=== PATIENT | female | born 1965 | race Caucasian/White ===

== ENCOUNTER 2017-07-09 11:07 | Emergency (ER) | payer OTHER ==
--- NOTE | 2017-07-09 12:46 | RAD REPORT ---
EXAM DESCRIPTION: VAS - Extremity Venous Uni Ltd - 07/09/2017 12:27 pm CLINICAL HISTORY: Right leg pain, right calf pain COMPARISON: None. TECHNIQUE: Real-time sonographic evaluation of the right lower extremity deep venous systems was per formed. FINDINGS: Normal compressibility, flow augmentation, phasic flow and spontaneous flow are identified in the right lower extremity deep venous system. No intraluminal filling defects seen. Minimal hypoechoic area seen in the area of pain. This could be a small amount of hemorrhagic materia l. No abscess or drainable fluid collection. IMPRESSION: No DVT in the right lower extremity. Minimal edema or hemorrhage material in the superficial soft tissues at the area of calf pain.
--- NOTE | 2017-07-09 15:24 | ER ---
Nurse's Notes [facility] Name: Natalee Marquez Age: 52 yrs Sex: Female : 1965 Arrival Date: 07/09/2017 Time: 11:14 Bed 14 Private MD: Diagnosis: Edema, unspecified;Pain in right lower leg;Cellulitis of right lower limb Presentation: 07/09 11:14 Presenting complaint: Patient states: last Thursday went to [place], because of swelling on hj my R leg, last night i felt a knot on my R lower leg; its swollen and red;. Transition of care: patient was not received from another setting of care. Onset of symptoms was July 09, 2017. Care prior to arrival: None. 11:14 Method Of Arrival: Ambulatory 11:14 Acuity: JANICE 3 hj Triage Assessment: 11:17 General: Appears in no apparent distress. uncomfortable, Behavior is calm, cooperative, hj appropriate for age. Pain: Complains of pain in right leg. ADMIN ASST: 11:18 LMP N/A - Hysterectomy hj Historical: - Allergies: 11:17 No Known Allergies; hj - Home Meds: 11:17 [place] Thyroid 90 mg Oral tab daily [Active]; lisinopril 20 mg Oral tab 1 tab once hj daily [Active]; fenofibrate 50 mg oral cap 1 cap once daily [Active]; trazodone 50 mg Oral tab 1 tab 3 times per day [Active]; - PMHx: 11:17 Hypothyroidism; Hypertension; hj - PSHx: 11:17 Tonsillectomy; Hysterectomy; Cholecystectomy; hj - Immunization history:: Adult Immunizations up to date. - Family history:: not pertinent. - Social history:: Smoking status: unknown. Screenin:34 Abuse screen: Denies threats or abuse. Denies injuries from another. Nutritional aj1 screening: No deficits noted. Tuberculosis screening: No symptoms or risk factors identified. 15:56 Fall Risk None identified. aj1 Assessment: 13:34 General: Appears in no apparent distress. comfortable, Behavior is calm, cooperative, aj1 appropriate for age. Pain: Complains of pain in right calf Neuro: Level of Consciousness is awake, alert, obeys commands, Oriented to person, place, time, situation, Speech is normal, Facial symmetry appears normal. Cardiovascular: Patient's skin is warm and dry. Respiratory: Airway is patent Respiratory effort is even, unlabored, Respiratory pattern is regular, symmetrical. GI: No signs and/or symptoms were reported involving the gastrointestinal system. : No signs and/or symptoms were reported regarding the genitourinary system. EENT: No signs and/or symptoms were reported regarding the EENT system. Derm: Skin is pink, warm \T\ dry. normal. Musculoskeletal: Swelling present in right ankle, right calf and right sauceda Redness present in right calf. 14:30 Reassessment: Patient appears in no apparent distress at this time. No changes from aj1 previously documented assessment. Patient and/or family updated on plan of care and expected duration. Pain level reassessed. Patient is alert, oriented x 3, equal unlabored respirations, skin warm/dry/pink. 15:56 Reassessment: Patient appears in no apparent distress at this time. No changes from aj1 previously documented assessment. Patient and/or family updated on plan of care and expected duration. Pain level reassessed. Patient is alert, oriented x 3, equal unlabored respirations, skin warm/dry/pink. Vital Signs: 11:18 BP 141 / 103; Pulse 77; Resp 18; Temp 97.3(TE); Pulse Ox 100% on R/A; Weight 72.57 kg; hj Height 5 ft. 5 in. (165.10 cm); Pain 6/10; 13:34 BP 120 / 77; Pulse 71; Resp 18; Pulse Ox 100% on R/A; aj1 15:56 BP 130 / 86; Pulse 73; Resp 18; Pulse Ox 97% on R/A; aj1 11:18 Body Mass Index 26.62 (72.57 kg, 165.10 cm) ED Course: 11:14 Patient arrived in ED. hj 11:16 Triage completed. hj 11:18 Arm band placed on left wrist. hj 12:15 Patient taken to ultrasound. via wheelchair. aa4 12:31 Ultrasound completed. Patient tolerated well. Patient moved back from ultrasound. aa4 13:25 Guerline Davey, RN is Primary Nurse. aj1 13:29 Nik Graham MD is Attending Physician. gilberto 13:34 Patient has correct armband on for positive identification. Placed in gown. Bed in low aj1 position. Call light in reach. Side rails up X 1. 13:34 No provider procedures requiring assistance completed. aj1 15:31 X-ray completed. Portable x-ray completed in exam room. Patient tolerated procedure bb2 well. 15:56 Patient did not have IV access during this emergency room visit. aj1 Administered Medications: 15:49 Drug: Motrin 400 mg Route: PO; aj1 15:58 Follow up: Response: No adverse reaction aj1 15:49 Drug: Doxycycline 100 mg Route: PO; aj1 15:58 Follow up: Response: No adverse reaction aj1 15:49 Drug: [place] 5 mg-325 mg 1 tabs Route: PO; aj1 15:57 Follow up: Response: No adverse reaction aj1 Outcome: 15:24 Discharge ordered by . gilberto 15:56 Discharged to home ambulatory. aj1 15:56 Condition: good 15:56 Discharge instructions given to patient, Instructed on discharge instructions, follow up and referral plans. no drinking with medication, no driving heavy equipment, medication usage, Demonstrated understanding of instructions, follow-up care, medications, Prescriptions given X 3. 15:59 Patient left the ED. aj1 Signatures: Guerline Davey, RN RN aj1 Nik Graham MD MD cha Frazier, Amanda aa4 Diego Robin RN RN hj Bock, Brittany bb2 Corrections: (The following items were deleted from the chart) 11:19 11:18 Pulse 77bpm; Resp 18bpm; Pulse Ox 100% RA; Temp 97.3F Temporal; 72.57 kg; Height hj 5 ft. 5 in.; BMI: 26.6; Pain 6/10; hj 11:20 11:18 Pulse 77bpm; Resp 18bpm; Pulse Ox 100% RA; Temp 97.3F Temporal; 72.57 kg; Height hj 5 ft. 5 in.; BMI: 26.6; Pain 6/10; hj
--- NOTE | 2017-07-09 15:24 | EDPHYS ---
Physician Documentation [facility] Name: Natalee Marquez Age: 52 yrs Sex: Female : 1965 Arrival Date: 07/09/2017 Time: 11:14 Bed 14 Private MD: ED Nik Barron HPI: 07/09 15:19 This 52 yrs old Female presents to ER via Ambulatory with complaints of Leg gilberto Swelling. 15:19 The patient presents with decreased range of motion, pain. The complaints affect the gilberto right sauceda. Context: The problem was sustained at an unknown site. Onset: The symptoms/episode began/occurred 14 day(s) ago. Modifying factors: The symptoms are alleviated by elevating leg, remaining still, the symptoms are aggravated by weight bearing. Associated signs and symptoms: The patient has no apparent associated signs or symptoms. Treatment prior to arrival includes: no previous treatment. Severity of symptoms: At their worst the symptoms were mild. 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 - Family history:: not pertinent. - Social history:: Smoking status: unknown. ROS: 15:19 Constitutional: Negative for fever, chills, and weight loss, Eyes: Negative for injury, gilberto pain, redness, and discharge, ENT: Negative for injury, pain, and discharge, Neck: Negative for injury, pain, and swelling, Cardiovascular: Negative for chest pain, palpitations, and edema, Respiratory: Negative for shortness of breath, cough, wheezing, and pleuritic chest pain, Abdomen/GI: Negative for abdominal pain, nausea, vomiting, diarrhea, and constipation, Back: Negative for injury and pain, : Negative for injury, bleeding, discharge, and swelling, Neuro: Negative for headache, weakness, numbness, tingling, and seizure, Psych: Negative for depression, anxiety, suicide ideation, homicidal ideation, and hallucinations, Allergy/Immunology: Negative for hives, rash, and allergies, Endocrine: Negative for neck swelling, polydipsia, polyuria, polyphagia, and marked weight changes, Hematologic/Lymphatic: Negative for swollen nodes, abnormal bleeding, and unusual bruising. 15:19 MS/extremity: Positive for decreased range of motion, erythema, pain, tenderness, of the right sauceda. Exam: 15:19 Constitutional: This is a well developed, well nourished patient who is awake, alert, gilberto and in no acute distress. Head/Face: Normocephalic, atraumatic. Eyes: Pupils equal round and reactive to light, extra-ocular motions intact. Lids and lashes normal. Conjunctiva and sclera are non-icteric and not injected. Cornea within normal limits. Periorbital areas with no swelling, redness, or edema. ENT: Nares patent. No nasal discharge, no septal abnormalities noted. Tympanic membranes are normal and external auditory canals are clear. Oropharynx with no redness, swelling, or masses, exudates, or evidence of obstruction, uvula midline. Mucous membranes moist. Neck: Trachea midline, no thyromegaly or masses palpated, and no cervical lymphadenopathy. Supple, full range of motion without nuchal rigidity, or vertebral point tenderness. No Meningismus. Chest/axilla: Normal chest wall appearance and motion. Nontender with no deformity. No lesions are appreciated. Cardiovascular: Regular rate and rhythm with a normal S1 and S2. No gallops, murmurs, or rubs. Normal PMI, no JVD. No pulse deficits. Respiratory: Lungs have equal breath sounds bilaterally, clear to auscultation and percussion. No rales, rhonchi or wheezes noted. No increased work of breathing, no retractions or nasal flaring. Abdomen/GI: Soft, non-tender, with normal bowel sounds. No distension or tympany. No guarding or rebound. No evidence of tenderness throughout. Back: No spinal tenderness. No costovertebral tenderness. Full range of motion. Skin: Warm, dry with normal turgor. Normal color with no rashes, no lesions, and no evidence of cellulitis. MS/ Extremity: Pulses equal, no cyanosis. Neurovascular intact. Full, normal range of motion. Neuro: Awake and alert, GCS 15, oriented to person, place, time, and situation. Cranial nerves II-XII grossly intact. Motor strength 5/5 in all extremities. Sensory grossly intact. Cerebellar exam normal. Normal gait. Psych: Awake, alert, with orientation to person, place and time. Behavior, mood, and affect are within normal limits. 15:19 Musculoskeletal/extremity: ROM: no acute changes, intact in all extremities, full active range of motion, full passive range of motion, Circulation is intact in all extremities. Sensation intact. Compartment Syndrome exam of affected extremity: is normal. DVT Exam: negative Homans' sign noted on exam, no appreciated bluish discoloration, no erythema, no increased warmth, pain, swelling, tenderness. Vital Signs: 11:18 BP 141 / 103; Pulse 77; Resp 18; Temp 97.3(TE); Pulse Ox 100% on R/A; Weight 72.57 kg; hj Height 5 ft. 5 in. (165.10 cm); Pain 6/10; 13:34 BP 120 / 77; Pulse 71; Resp 18; Pulse Ox 100% on R/A; aj1 15:56 BP 130 / 86; Pulse 73; Resp 18; Pulse Ox 97% on R/A; aj1 11:18 Body Mass Index 26.62 (72.57 kg, 165.10 cm) hj MDM: 13:29 Patient medically screened. [facility] 07/09 11:46 Order name: US Extremity Venous Uni Ltd iw 07/09 12:46 Order name: VAS EDNC 07/09 15:19 Order name: Tib Fib Right XRAY [facility] Administered Medications: 15:49 Drug: Motrin 400 mg Route: PO; aj1 15:58 Follow up: Response: No adverse reaction aj1 15:49 Drug: Doxycycline 100 mg Route: PO; aj1 15:58 Follow up: Response: No adverse reaction aj1 15:49 Drug: [place] 5 mg-325 mg 1 tabs Route: PO; aj1 15:57 Follow up: Response: No adverse reaction aj1 Disposition: 07/09/17 15:24 Discharged to Home. Impression: Edema, unspecified, Pain in right lower leg, Cellulitis of right lower limb. - Condition is Stable. - Discharge Instructions: Cellulitis, Edema, Musculoskeletal Pain. - Prescriptions for Tylenol- Codeine #3 300-30 mg Oral Tablet - take 1 tablet by ORAL route every 4 hours As needed; 24 tablet. Doxycycline Hyclate 100 mg Oral Tablet - take 1 tablet by ORAL route every 12 hours; 20 tablet. Motrin IB 200 mg Oral Tablet - take 1 tablet by ORAL route every 6 hours As needed as needed with food; 30 tablet. - Medication Reconciliation Form, Thank You Letter, Antibiotic Education, Prescription Opioid Use form. - Follow up: Private Physician; When: 2 - 3 days; Reason: Recheck today's complaints, Continuance of care, Re-evaluation by your physician. - Problem is new. - Symptoms have improved. Signatures: Dispatcher [employer] EDGuerline Parr RN RN aj1 Nik Graham MD MD cha Joaquin, Henry, RN RN hj
[2017-07-09] MEDS ORDERED: HYDROCODONE/APAP 10/325 TAB ONE (15:26)
[2017-07-09] MEDS ORDERED: DOXYCYCLINE 100 MG CAP PO ONE (16:01)
[2017-07-09] MEDS ORDERED: IBUPROFEN 400 MG TAB ONE (16:01)
[2017-07-09] MEDS ORDERED: HYDROCODONE/APAP 5/325 MG TAB ONE (16:01)
--- NOTE | 2017-07-09 16:23 | RAD REPORT ---
EXAM DESCRIPTION: RAD - Tib Fib Right - 07/09/2017 3:31 pm CLINICAL HISTORY: Leg pain and swelling COMPARISON: None. FINDINGS: No fracture is identified. There is no dislocation or periosteal reaction noted. No acute or suspicious bony finding. No foreign body or other soft tissue abnormality. IMPRESSION: Negative right tibia & fibula examination.
== END 2017-07-09 15:59 | disposition home or self-care (01) ==
LOC: ER 11:07
DX: E03.9 Hypothyroidism, unspecified; L03.115 Cellulitis of right lower limb; I10 Essential (primary) hypertension
CPT/HCPCS: 93971; 99284

== ENCOUNTER 2018-06-02 16:59 | Emergency (ER) | payer OTHER ==
--- OUTSIDE RECORDS SUMMARY | 2018-06-02 17:01 | XMS REPORT ---
:1965 [facility] [address] [place] [id number] Care Team Providers Name Role Phone Unavailable Unavailable Unavailable Problems This patient has no known problems. Allergies, Adverse Reactions, Alerts This patient has no known allergies or adverse reactions. Medications This patient has no known medications.
[2018-06-02 17:54] LABS: Absolute Lymphocytes (CBC) 2.8 K/uL (0.7-4.9); Absolute Monocytes 0.7 K/uL (0.1-1.3); Basophils % 0.5 % (0-1.3); Eosinophils % 1.4 % (0-4.4); Hematocrit 43.3 % (36.0-45.0); Lymphocytes % 26.1 % (15.3-44.8); MPV 9.2 fL (7.6-11.3); Monocytes % 6.9 % (3.3-12.3); RBC Red Blood Cell Count 4.64 M/uL (3.86-4.86)
[2018-06-02 17:58] LABS: Protime INR 0.95
--- NOTE | 2018-06-02 17:59 | RAD REPORT ---
EXAM DESCRIPTION: RAD - Chest Single View - 06/02/2018 5:38 pm CLINICAL HISTORY: CHEST PAIN Chest pain. COMPARISON: No comparisons FINDINGS: Portable technique limits examination quality. The lungs are grossly clear. The heart is normal in size. No displaced fractures. IMPRESSION: No acute intrathoracic process suspected.
[2018-06-02 18:17] LABS: ALT/SGPT 23 U/L (12-78); AST/SGOT 14 U/L (15-37); Albumin 3.7 g/dL (3.4-5.0); Alkaline Phosphatase 53 U/L (45-117); BUN Blood Urea Nitrogen 14 mg/dL (7-18); Bicarbonate 32 mmol/L (21-32); Bilirubin Direct 0.1 mg/dL (0-0.2); Bilirubin Total 0.4 mg/dL (0.2-1.0); Glucose Level 110 mg/dL (74-106); NT PRO-BNP 28 pg/mL (<125); Protein, Total 7.5 g/dL (6.4-8.2); Sodium Level 139 mmol/L (136-145); Troponin (Emerg Dept Use Only) < 0.02 ng/mL (0.0-0.045)
[2018-06-02 19:46] LABS: Urine Blood NEGATIVE (NEG); Urine Glucose NEGATIVE (NEG); Urine Protein NEGATIVE (NEG)
--- NOTE | 2018-06-02 20:32 | EKG ---
Test Date: 2018-06-02 Test Time: 17:21:10 [employer]re Charger: [place] MEASUREMENT RESULTS: Intervals: Rate: 71 ME: 150 QRSD: 74 QT: 382 QTc: 415 [place]: P: 33 ME: 150 QRS: 18 T: 39 INTERPRETIVE STATEMENTS: Normal sinus rhythm Normal ECG Compared to ECG 10/01/2012 09:52:17 No significant changes Electronically Signed On 06-02-18 20:31:26 MECHANICAL INTERN by Reuben Del Rio
[2018-06-02] MEDS ORDERED: MAGNE/ALUM HYDROXD 30 ML UCUP ONE (21:30)
[2018-06-02] MEDS ORDERED: LIDOCAINE VISCOUS 2% SOLN 15 ML UDC ONE (21:30)
--- NOTE | 2018-06-02 21:31 | ER ---
Nurse's Notes [facility] Name: Natalee Marquez Age: 52 yrs Sex: Female : 1965 Arrival Date: 06/02/2018 Time: 17:01 Bed 17 Private MD: None, None Diagnosis: Chest pain, unspecified Presentation: 06/02 17:04 Presenting complaint: Burning chest pain that started after breakfast today. Also c/o hb nausea and mild SOB. Transition of care: patient was not received from another setting of care. Onset of symptoms was June 02, 2018. Risk Assessment: Do you want to hurt yourself or someone else? Patient reports no desire to harm self or others. Care prior to arrival: None. 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 - Social history:: Smoking status: Patient/guardian denies using tobacco. - Ebola Screening: : No symptoms or risks identified at this time. Screenin:30 Abuse screen: Denies threats or abuse. Denies injuries from another. Nutritional aj1 screening: No deficits noted. Tuberculosis screening: No symptoms or risk factors identified. Assessment: 17:30 General: Appears in no apparent distress. comfortable, Behavior is calm, cooperative, aj1 appropriate for age. Pain: Complains of pain in mid-sternal area Pain radiates to anterior aspect of right upper chest and anterior aspect of left upper chest Quality of pain is described as burning, Pain began this morning. Neuro: Level of Consciousness is awake, alert, obeys commands, Oriented to person, place, time, situation, Speech is normal. Cardiovascular: Reports chest pain, shortness of breath, Heart tones S1 S2 present Patient's skin is warm and dry. Rhythm is sinus rhythm. Respiratory: Airway is patent Respiratory effort is even, unlabored, Respiratory pattern is regular, symmetrical, Breath sounds are clear bilaterally. GI: No signs and/or symptoms were reported involving the gastrointestinal system. : No signs and/or symptoms were reported regarding the genitourinary system. EENT: No signs and/or symptoms were reported regarding the EENT system. Derm: No signs and/or symptoms reported regarding the dermatologic system. Skin is pink, warm \T\ dry. normal. Musculoskeletal: No signs and/or symptoms reported regarding the musculoskeletal system. Circulation, motion, and sensation intact. 18:29 Reassessment: Patient appears in no apparent distress at this time. No changes from aj1 previously documented assessment. Patient and/or family updated on plan of care and expected duration. Pain level reassessed. Patient is alert, oriented x 3, equal unlabored respirations, skin warm/dry/pink. 19:10 Reassessment: Patient appears in no apparent distress at this time. Patient and/or jb4 family updated on plan of care and expected duration. Pain level reassessed. Patient is alert, oriented x 3, equal unlabored respirations, skin warm/dry/pink. Pt reports feeling better, and that the pain comes and goes. 20:00 Reassessment: Patient appears in no apparent distress at this time. Patient and/or jb4 family updated on plan of care and expected duration. Pain level reassessed. Patient is alert, oriented x 3, equal unlabored respirations, skin warm/dry/pink. 21:00 Reassessment: Patient appears in no apparent distress at this time. Patient and/or jb4 family updated on plan of care and expected duration. Pain level reassessed. Patient is alert, oriented x 3, equal unlabored respirations, skin warm/dry/pink. Vital Signs: 17:05 BP 167 / 92; Pulse 73; Resp 16; Temp 97.1; Pulse Ox 100% on R/A; Pain 7/10; hb 18:30 BP 158 / 95; Pulse 75; Resp 18; Pulse Ox 98% on R/A; aj1 19:10 BP 159 / 104; Pulse 77; Resp 12; Pulse Ox 99% on R/A; jb4 20:26 BP 151 / 82; Pulse 74; Resp 16; Pulse Ox 99% on R/A; jb4 21:00 BP 158 / 100; Pulse 72; Resp 13; Pulse Ox 97% on R/A; jb4 ED Course: 17:01 Patient arrived in ED. sb2 17:01 None, None is Private Physician. sb2 17:05 Triage completed. hb 17:06 Arm band placed on. hb 17:17 Alfonso Clancy, QUALITY ASSURANCE COORDINATOR is PHCP. pm1 17:17 Alan Hankins MD is Attending Physician. pm1 17:26 EKG done, by batch room technician. reviewed by Alfonso Clancy NP. dt2 17:30 Patient has correct armband on for positive identification. avp on. Pulse aj1 ox on. NIBP on. 17:30 No provider procedures requiring assistance completed. Patient maintains SpO2 aj1 saturation greater than 95% on room air. 17:32 X-ray completed. Portable x-ray completed in exam room. Patient tolerated procedure ag1 well. 17:33 Guerline Davey, RN is Primary Nurse. aj1 17:35 XRAY Chest (1 view) In Process Unspecified. EDMS 17:40 Missed attempt(s): 22 gauge in right forearm. Bleeding controlled, band aid applied, dh3 catheter tip intact. 17:43 Initial lab(s) drawn, by me, sent to lab. Inserted saline lock: 22 gauge in left dh3 antecubital area, using aseptic technique. Blood collected. 21:43 IV discontinued, intact, bleeding controlled. jb4 Administered Medications: 21:18 Not Given (Physician Discretion): GI Cocktail without - (Maalox Suspension 30 pm1 ml, Lidocaine Liquid 2 % 15 ml) PO once 21:31 Drug: TORadol 30 mg Route: IVP; Site: left antecubital; jb4 21:31 Follow up: Response: No adverse reaction; Pain is decreased jb4 21:31 Not Given (Patient Refused): GI Cocktail without - (Maalox Suspension 30 ml, jb4 Lidocaine Liquid 2 % 15 ml) PO once Outcome: 21:30 Discharge ordered by . pm1 21:43 Discharged to home ambulatory, with significant other. jb4 21:43 Condition: stable 21:43 Discharge instructions given to patient, significant other, Instructed on discharge instructions, follow up and referral plans. Demonstrated understanding of instructions, follow-up care. 21:44 Patient left the ED. jb4 Signatures: Dispatcher [employer] EDGuerline Parr, RN RN aj1 Kailyn Weston ag1 Alfonso Clancy, REILLY QUALITY ASSURANCE COORDINATOR pm1 Darlyn Bauer RN RN Kevin Howard RN RN jb4 Kristine Alvarado 3 Leisa Rachel 2 Kay Hernandez dt2
--- NOTE | 2018-06-02 21:31 | EDPHYS ---
Physician Documentation [facility] Name: Natalee Marquez Age: 52 yrs Sex: Female : 1965 Arrival Date: 06/02/2018 Time: 17:01 Bed 17 Private MD: None, None ED Physician Alan Hankins HPI: 06/02 18:00 This 52 yrs old Female presents to ER via Ambulatory with complaints of Chest pm1 Pain > 30 y/o. 18:00 The patient or guardian reports chest pain that is located primarily in the mid-sternal pm1 area. 18:00 Onset: this morning, at 10:00. The pain does not radiate. Associated signs and pm1 symptoms: Pertinent negatives: abdominal pain, cough, diaphoresis, dizziness, headache, lightheadedness, nausea, palpitations, shortness of breath, vomiting. The chest pain is described as burning. Duration: The patient or guardian reports a single episode, that is still ongoing, and unchanged. Modifying factors: The symptoms are alleviated by nothing. the symptoms are aggravated by onset after eating breakfast. Severity of pain: in the emergency department the pain is unchanged. The patient has not experienced similar symptoms in the past. The patient has not recently seen a physician. 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 - Social history:: Smoking status: Patient/guardian denies using tobacco. - Ebola Screening: : No symptoms or risks identified at this time. ROS: 18:00 Constitutional: Negative for fever, chills, and weight loss, Eyes: Negative for injury, pm1 pain, redness, and discharge, ENT: Negative for injury, pain, and discharge, Neck: Negative for injury, pain, and swelling. 18:00 Respiratory: Negative for shortness of breath, cough, wheezing, and pleuritic chest pain, Abdomen/GI: Negative for abdominal pain, nausea, vomiting, diarrhea, and constipation, Back: Negative for injury and pain, : Negative for injury, bleeding, discharge, and swelling, MS/Extremity: Negative for injury and deformity, Skin: Negative for injury, rash, and discoloration, Neuro: Negative for headache, weakness, numbness, tingling, and seizure. 18:00 Cardiovascular: Positive for chest pain, Negative for edema, orthopnea, palpitations, paroxysmal nocturnal dyspnea. Exam: 18:00 Constitutional: This is a well developed, well nourished patient who is awake, alert, pm1 and in no acute distress. Head/Face: Normocephalic, atraumatic. Eyes: Pupils equal round and reactive to light, extra-ocular motions intact. Lids and lashes normal. Conjunctiva and sclera are non-icteric and not injected. Cornea within normal limits. Periorbital areas with no swelling, redness, or edema. ENT: Nares patent. No nasal discharge, no septal abnormalities noted. Tympanic membranes are normal and external auditory canals are clear. Oropharynx with no redness, swelling, or masses, exudates, or evidence of obstruction, uvula midline. Mucous membranes moist. Neck: Trachea midline, no thyromegaly or masses palpated, and no cervical lymphadenopathy. Supple, full range of motion without nuchal rigidity, or vertebral point tenderness. No Meningismus. Chest/axilla: Normal chest wall appearance and motion. Nontender with no deformity. No lesions are appreciated. Cardiovascular: Regular rate and rhythm with a normal S1 and S2. No gallops, murmurs, or rubs. Normal PMI, no JVD. No pulse deficits. Respiratory: Lungs have equal breath sounds bilaterally, clear to auscultation and percussion. No rales, rhonchi or wheezes noted. No increased work of breathing, no retractions or nasal flaring. Abdomen/GI: Soft, non-tender, with normal bowel sounds. No distension or tympany. No guarding or rebound. No evidence of tenderness throughout. Back: No spinal tenderness. No costovertebral tenderness. Full range of motion. Skin: Warm, dry with normal turgor. Normal color with no rashes, no lesions, and no evidence of cellulitis. MS/ Extremity: Pulses equal, no cyanosis. Neurovascular intact. Full, normal range of motion. 18:00 Neuro: Orientation: is normal, Motor: is normal, moves all fours, Gait: is steady, at a normal pace, without difficulty. Vital Signs: 17:05 BP 167 / 92; Pulse 73; Resp 16; Temp 97.1; Pulse Ox 100% on R/A; Pain 7/10; hb 18:30 BP 158 / 95; Pulse 75; Resp 18; Pulse Ox 98% on R/A; aj1 19:10 BP 159 / 104; Pulse 77; Resp 12; Pulse Ox 99% on R/A; jb4 20:26 BP 151 / 82; Pulse 74; Resp 16; Pulse Ox 99% on R/A; jb4 21:00 BP 158 / 100; Pulse 72; Resp 13; Pulse Ox 97% on R/A; jb4 MDM: 17:26 Patient medically screened. pm1 21:29 HEART Score: History: Slightly Suspicious (0), ECG: Normal (0), Age: > 45 and < 65 pm1 years (1), Risk Factors: No Risk Factors Known (0), Troponin: < or = 1 x Normal Limit (0). RICCO Risk Score: TOTAL SCORE = 0. Data reviewed: vital signs. 21:30 ED course: Patient with constant burning chest pain onset after eating breakfast this pm1 AM. Patient with two negative troponin greater than 4 hours after onset of chest pain. Heart score = 1 and RICCO = 0. will discharge patient to follow up with PCP and/or GI. 06/02 17:18 Order name: Basic Metabolic Panel; Complete Time: 18:36 pm1 06/02 17:18 Order name: CBC with Diff; Complete Time: 18:02 pm1 06/02 17:18 Order name: LFT's; Complete Time: 18:36 pm1 06/02 17:18 Order name: Magnesium; Complete Time: 18:36 pm1 06/02 17:18 Order name: NT PRO-BNP; Complete Time: 18:36 pm1 06/02 17:18 Order name: PT-INR; Complete Time: 18:02 pm1 06/02 17:18 Order name: Troponin (emerg Dept Use Only); Complete Time: 18:36 pm1 06/02 17:18 Order name: XRAY Chest (1 view); Complete Time: 18:02 pm1 06/02 19:45 Order name: Urine Dipstick--Ancillary (enter results) ar5 06/02 19:46 Order name: Urine Dipstick-Ancillary; Complete Time: 21:14 EDMS 06/02 20:01 Order name: Troponin (emerg Dept Use Only); Complete Time: 21:14 pm1 06/02 20:15 Order name: Urine --Ancillary (enter results); Complete Time: 21:14 ar5 06/02 17:10 Order name: EKG; Complete Time: 17:10 hb 06/02 17:10 Order name: EKG - Nurse/Tech; Complete Time: 17:49 hb 06/02 17:18 Order name: Cardiac monitoring; Complete Time: 17:49 pm1 06/02 17:18 Order name: IV Saline Lock; Complete Time: 17:49 pm1 06/02 17:18 Order name: Labs collected and sent; Complete Time: 17:49 pm1 06/02 17:18 Order name: O2 Per Protocol; Complete Time: 17:49 pm1 06/02 17:18 Order name: O2 Sat Monitoring; Complete Time: 17:49 pm1 06/02 17:18 Order name: Urine Dipstick-Ancillary (obtain specimen); Complete Time: 19:51 pm1 06/02 19:45 Order name: Urine Test (obtain specimen); Complete Time: 20:07 ar5 Administered Medications: 21:18 Not Given (Physician Discretion): GI Cocktail without - (Maalox Suspension 30 pm1 ml, Lidocaine Liquid 2 % 15 ml) PO once 21:31 Drug: TORadol 30 mg Route: IVP; Site: left antecubital; jb4 21:31 Follow up: Response: No adverse reaction; Pain is decreased jb4 21:31 Not Given (Patient Refused): GI Cocktail without - (Maalox Suspension 30 ml, jb4 Lidocaine Liquid 2 % 15 ml) PO once Disposition: 06/02/18 21:30 Discharged to Home. Impression: Chest pain, unspecified. - Condition is Stable. - Discharge Instructions: Nonspecific Chest Pain. - Medication Reconciliation Form, Thank You Letter, Antibiotic Education, Prescription Opioid Use form. - Follow up: Emergency Department; When: As needed; Reason: Worsening of condition. Follow up: Private Physician; When: 2 - 3 days; Reason: Recheck today's complaints, Continuance of care, Re-evaluation by your physician. - Problem is new. - Symptoms have improved. Signatures: Dispatcher [employer] EDMS Alfonso Clancy NP DYE OPERATOR pm1 Darlyn Bauer RN RN Kevin Howard RN RN jb4 Sofía Howard ar5 Corrections: (The following items were deleted from the chart) 17:50 17:18 Urine Test ordered. pm1 dh3 21:44 21:30 06/02/2018 21:30 Discharged to Home. Impression: Chest pain, unspecified. jb4 Condition is Stable. Forms are Medication Reconciliation Form, Thank You Letter, Antibiotic Education, Prescription Opioid Use. Follow up: Emergency Department; When: As needed; Reason: Worsening of condition. Follow up: Private Physician; When: 2 - 3 days; Reason: Recheck today's complaints, Continuance of care, Re-evaluation by your physician. Problem is new. Symptoms have improved. pm1
[2018-06-02] MEDS ORDERED: KETOROLAC 30 MG/ML INJ ONE (21:33)
== END 2018-06-02 21:44 | disposition home or self-care (01) ==
LOC: ER 16:59
DX: R07.9 Chest pain, unspecified (principal); E03.9 Hypothyroidism, unspecified; I10 Essential (primary) hypertension; Z79.899 Other long term (current) drug therapy
CPT/HCPCS: 36415; 71045; 80048; 80076; 81003; 81025; 83735; 83880; 84484; 85025; 85610; 93005; 96374; 99285

== ENCOUNTER 2022-02-26 14:11 | Emergency (ER) | payer OTHER ==
--- OUTSIDE RECORDS SUMMARY | 2022-02-26 14:14 | XMS REPORT | Continuity of Care Document ---
:1965 Author Organization [facility] t Address [facility] Jacek Rudd [address] [place] [address] Care Team Providers Name Role Phone No MD, Pcp Primary Care Physician Unavailable NATHANIEL CELAYA Attending Clinician Unavailable GABRIEL Attending Clinician Unavailable Krystle De La Torre Attending Clinician [phone] Coretta Gore MA Attending Clinician Unavailable RAMOS MORALES Attending Clinician Unavailable GABRIEL Admitting Clinician Unavailable Payers Payer Name Policy Type Policy Number Effective Date Expiration Date S ourannika AET[employer] CHOICE POS [id number] 2009 00:00:00 II AETNA (POS) [id number] 2009 00:00:00 AETNA CHOICE POS [id number] 2020 00:00:00 II Problems Condition Condition Condition Status Onset Resolution Last Treating Co mments Source Name Details Category Date Date Treatment Clinician Date Palpitatio Palpitatio Disease Active 2020-04 U T ns ns 0-26 Health 00:00: 00 Encounter Encounter Disease Active 2020-04 [facility] for for 0-26 Health screening screening 00:00: for for 00 coronary coronary artery artery disease disease Diabetes Diabetes Problem Active Sween y mellitus Mellitus 5-13 Commun i 00:00: ty 00 Hospita l Clinics Hypertensi Hypertensi Problem Active S weeny ve ve 5-13 Communi disorder Disorder 00:00: ty 00 Hospita l Clinics Essential Essential Disease Active [facility] hypertensi hypertensi 4-07 He alth on on 00:00: 00 Chest pain Chest pain Disease Active U T 4-07 Health 00:00: 00 Diabetes Diabetes Disease Active [facility] mellitus mellitus 4-07 Health 00:00: 00 Dyslipidem Dyslipidem Disease Active U T ia ia 4-07 Health 00:00: 00 Allergies, Adverse Reactions, Alerts Allergy Allergy Status Severity Reaction(s) Onset Inactive Treating Comm ents Source Name Type Date Date Clinician Yashira Allergy Active 2020-04 [place] antoin to 0-22 Health substan 00:00: e 00 NO KNOWN Drug Active [facility] ALLERGRAISA [facility] of [facility] Social History Social Habit Start Date Stop Date Quantity Comments Source Tobacco use and 2021-02-12 2021-02-12 Smokeless tobacco [facility] exposure 00:00:00 00:00:00 non-user Alcohol intake 2021-02-12 2021-02-12 Lifetime [facility] 00:00:00 00:00:00 non-drinker (finding) Sex Ass[birth year] At [birth year] [facility] 00:00:00 00:00:00 Smoking Status Start Date Stop Date Source Never smoked tobacco [facility] Medications Ordered Filled Start Stop Current Ordering Indication Dosage Frequency Signature Comments Components Source Medication Medication Date Date Medication? Clinician (SIG) Name Name ceftriaxone ceftriaxone 2020-04 No ceftriaxon [place] 1 gram 1 gram 1-10 e 1 gram Communi solution solution 14:15: solution t y for for for Hospita injectionTa injectionTa injectionT l ke 1 g by ke 1 g by ana 1 g by Clinics injection injection injection route. route. route. lidocaine lidocaine 2020-04 No lidocaine [place] (PF) 10 (PF) 10 1-10 (PF) 10 Commun i mg/mL (1 %) mg/mL (1 %) 14:15: mg/mL (1 ty injection injection 00 %) Hospi ta solutionTak solutionTak injection l e 2.1 mL by e 2.1 mL by solutionTa Clinics injection injection ke 2.1 mL route. route. by injection route. Kenalog 40 Kenalog 40 2020-04 No Kenalog 40 [place] mg/mL mg/mL 1-10 mg/mL Communi suspension suspension 14:15: suspension ty for for 00 for Hospita injectionTa injectionTa injectionT l ke 60 mg by ke 60 mg by ana 60 mg Clinics injection injection by route. route. injection route. thyroid 2020-04 Yes 120mg QD Take 120 [facility] ([place] 0-26 mg by Health Thyroid) 14:26: mouth 1 120 MG 51 (one) time tablet each day. DHEA 10 MG 2020-04 Yes 50mg QD Take 50 mg U T capsule 0-26 by mouth 1 Health 14:26: (one) time 51 each day. dapaglifloz 2020-04 Yes 10mg QD Take 10 mg UT in 0-26 by mouth 1 Health (Farxiga) 14:26: (one) time 10 MG 51 each day. fenofibrate 2020-04 Yes 2{tbl} QD Take 2 UT (Tricor) 54 0-26 tablets by alth MG tablet 14:26: mouth 1 51 (one) time each day. lisinopril- 2020-04 Yes 1{tbl} QD Take 1 UT hydroCHLORO 0-26 tablet by [facility] thiazide 14:26: mouth 1 20-12.5 MG 51 (one) time tablet each day. progesteron 2020-04 Yes 100mg QD Insert 100 UT e 0-26 mg into Health (Endometrin 14:26: the vagina ) 100 MG 51 1 (one) vaginal time each insert day. nateglinide 2020-04 Yes 60mg Take 60 mg UT (Starlix) 0-26 by mouth 3 Heal th 60 MG 14:26: (three) tablet 51 times a day before meals. traZODone 2020-04 .5mg Take 0.5 UT (Desyrel) 0-26 10-26 mg by [facility] 50 MG 14:26: 00:00 mouth tablet 51 :00 every night. albuterol albuterol No albuterol [place] sulfate HFA sulfate HFA sulfate Communi 90 90 HFA 90 ty mcg/actuati mcg/actuati mcg/actuat Hospita on aerosol on aerosol ion l inhaler inhaler aerosol Clinic s inhaler [place] No [place] Thyroid 120 Thyroid 120 Thyroid Communi mg tablet mg tablet 120 mg ty TAKE 1 TAKE 1 tablet Hospita TABLET BY TABLET BY TAKE 1 l MOUTH DAILY MOUTH DAILY TABLET BY Clinics MOUTH DAILY cefdinir cefdinir No 2capsul Q1D cefdinir [place] 300 mg 300 mg e(s) 300 mg Communi capsule capsule capsule ty Take 2 Take 2 Take 2 Hospita capsules capsules capsules l every day every day every day Clinics by oral by oral by oral route for route for route for 10 days. 10 days. 10 days. ceftriaxone ceftriaxone No 1g ceftriaxon [place] 1 gram 1 gram e 1 gram Communi solution solution solution ty for for for Hospita injection injection injection l Take 1 g by Take 1 g by Take 1 g Clinics injection injection by route. route. injection route. cetirizine cetirizine No 1 Q1D cetirizine [place] 10 mg 10 mg 10 mg Communi tablet Take tablet Take tablet ty 1 tablet 1 tablet Take 1 Hospi ta every day every day tablet l by oral by oral every day Clin ics route for route for by oral 30 days. 30 days. route for 30 days. Farxiga 10 Farxiga 10 No Farxiga 10 [place] mg tablet mg tablet mg tablet Communi TAKE 1 TAKE 1 TAKE 1 ty TABLET BY TABLET BY TABLET BY Hospita MOUTH DAILY MOUTH DAILY MOUTH l DAILY Clinics fenofibrate fenofibrate No fenofibrat [place] 54 mg 54 mg e 54 mg Communi tablet TAKE tablet TAKE tablet ty 2 TABLET BY 2 TABLET BY TAKE 2 Hospita MOUTH DAILY MOUTH DAILY TABLET BY l MOUTH Clinics DAILY fenofibrate fenofibrate No 1 Q1D fenofibrat [place] nanocrystal nanocrystal e C ommuni lized 145 lized 145 nanocrysta ty mg tablet mg tablet llized 145 Hospita Take 1 Take 1 mg tablet l tablet tablet Take 1 Clinics every day every day tablet by oral by oral every day route for route for by oral 90 days. 90 days. route for 90 days. Flonase Flonase No 1spray( BID Flonase [place] Sensimist Sensimist s) Sensimist Communi 27.5 27.5 27.5 ty mcg/actuati mcg/actuati mcg/actuat Hospita on nasal on nasal ion nasal l spray,suspe spray,suspe spray,susp Clinics nsion Take nsion Take ension 1 spray 1 spray Take 1 twice a day twice a day spray by nasal by nasal twice a route for route for day by 30 days. 30 days. nasal route for 30 days. fluticasone fluticasone No fluticason [place] propionate propionate e Com zion 50 50 propionate ty mcg/actuati mcg/actuati 50 H ospita on nasal on nasal mcg/actuat l spray,suspe spray,suspe ion nasal Clinics nsion nsion spray,susp ension Kenalog 40 Kenalog 40 No 60mg Kenalog 40 [place] mg/mL mg/mL mg/mL Communi suspension suspension suspension ty for for for Hospita injection injection injection l Take 60 mg Take 60 mg Take 60 mg Clinics by by by injection injection injection route. route. route. lidocaine lidocaine No 2.1mL lidocaine [place] (PF) 10 (PF) 10 (PF) 10 Commun i mg/mL (1 %) mg/mL (1 %) mg/mL (1 ty injection injection %) Hospi ta solution solution injection l Take 2.1 mL Take 2.1 mL solution Clinics by by Take 2.1 injection injection mL by route. route. injection route. lisinopril lisinopril No lisinopril [place] 20 20 20 Communi mg-hydrochl mg-hydrochl mg-hydroch ty orothiazide orothiazide lorothiazi Hospita 12.5 mg 12.5 mg de 12.5 mg l tablet TAKE tablet TAKE tablet Clinics 1 TABLET BY 1 TABLET BY TAKE 1 MOUTH DAILY MOUTH DAILY TABLET BY MOUTH DAILY montelukast montelukast No 1 Q1D montelukas [place] 10 mg 10 mg t 10 mg Communi tablet Take tablet Take tablet ty 1 tablet 1 tablet Take 1 Hospi ta every day every day tablet l by oral by oral every day Clin ics route for route for by oral 90 days. 90 days. route for 90 days. nateglinide nateglinide No nateglinid [place] 60 mg 60 mg e 60 mg Communi tablet TAKE tablet TAKE tablet ty 1 TABLET BY 1 TABLET BY TAKE 1 Hospita MOUTH THREE MOUTH THREE TABLET BY l TIMES A DAY TIMES A DAY MOUTH Clinics TAKE TAKE THREE DIRECTED DIRECTED TIMES A BEFORE BEFORE DAY TAKE MEALS. SKIP MEALS. SKIP DOSE IF DOSE IF DIRECTED MEAL IS MEAL IS BEFORE SKIPPED. SKIPPED. MEALS. SKIP DOSE IF MEAL IS SKIPPED. pantoprazol pantoprazol No 2 Q1D pantoprazo [place] e 20 mg e 20 mg le 20 mg Commu ni tablet,conchita tablet,conchita tablet,del ty yed release yed release ayed H ospita Take 2 Take 2 release l tablets tablets Take 2 Clinics every day every day tablets by oral by oral every day route. route. by oral route. Symbicort Symbicort No Symbicort [place] 160 mcg-4.5 160 mcg-4.5 160 C ommuni mcg/actuati mcg/actuati mcg-4.5 ty on HFA on HFA mcg/actuat Hospi ta aerosol aerosol ion HFA l inhaler inhaler aerosol Clinic s inhaler acetylcyste acetylcyste No 2capsul Q1D acetylcyst [place] ine 600 mg ine 600 mg e(s) eine 600 Communi capsule capsule mg capsule ty Take 2 Take 2 Take 2 Hospita capsules capsules capsules l every day every day every day Clinics by oral by oral by oral route. route. route. [place] No [place] Thyroid 120 Thyroid 120 Thyroid Communi mg tablet mg tablet 120 mg ty TAKE 1 TAKE 1 tablet Hospita TABLET BY TABLET BY TAKE 1 l MOUTH DAILY MOUTH DAILY TABLET BY Clinics MOUTH DAILY cetirizine cetirizine No 1 Q1D cetirizine [place] 10 mg 10 mg 10 mg Communi tablet Take tablet Take tablet ty 1 tablet 1 tablet Take 1 Hospi ta every day every day tablet l by oral by oral every day Clin ics route for route for by oral 30 days. 30 days. route for 30 days. famotidine famotidine No 1 BID famotidine [place] 20 mg 20 mg 20 mg Communi tablet Take tablet Take tablet ty 1 tablet 1 tablet Take 1 Hospi ta twice a day twice a day tablet l by oral by oral twice a Clinic s route. route. day by oral route. Farxiga 10 Farxiga 10 No Farxiga 10 [place] mg tablet 1 mg tablet 1 mg tablet Communi TABLET BY TABLET BY 1 TABLET t y MOUTH ONCE MOUTH ONCE BY MOUTH Hospita A DAY A DAY ONCE A DAY l Clinics fenofibrate fenofibrate No fenofibrat [place] nanocrystal nanocrystal e C ommuni lized 145 lized 145 nanocrysta ty mg tablet mg tablet llized 145 Hospita TAKE 1 TAKE 1 mg tablet l TABLET BY TABLET BY TAKE 1 Cli nics MOUTH DAILY MOUTH DAILY TABLET BY MOUTH DAILY Flonase Flonase No 1spray( BID Flonase [place] Sensimist Sensimist s) Sensimist Communi 27.5 27.5 27.5 ty mcg/actuati mcg/actuati mcg/actuat Hospita on nasal on nasal ion nasal l spray,suspe spray,suspe spray,susp Clinics nsion Take nsion Take ension 1 spray 1 spray Take 1 twice a day twice a day spray by nasal by nasal twice a route for route for day by 30 days. 30 days. nasal route for 30 days. lisinopril lisinopril No lisinopril [place] 20 20 20 Communi mg-hydrochl mg-hydrochl mg-hydroch ty orothiazide orothiazide lorothiazi Hospita 12.5 mg 12.5 mg de 12.5 mg l tablet TAKE tablet TAKE tablet Clinics 1 TABLET BY 1 TABLET BY TAKE 1 MOUTH DAILY MOUTH DAILY TABLET BY MOUTH DAILY montelukast montelukast No montelukas [place] 10 mg 10 mg t 10 mg Communi tablet TAKE tablet TAKE tablet ty 1 TABLET 1 TABLET TAKE 1 Hospi ta EVERY DAY EVERY DAY TABLET l BY ORAL BY ORAL EVERY DAY Clin ics ROUTE FOR ROUTE FOR BY ORAL 90 DAYS. 90 DAYS. ROUTE FOR 90 DAYS. nateglinide nateglinide No nateglinid [place] 120 mg 120 mg e 120 mg Communi tablet tablet tablet ty Hospita l Clinics pantoprazol pantoprazol No pantoprazo [place] e 40 mg e 40 mg le 40 mg Commu ni tablet,conchita tablet,conchita tablet,del ty yed release yed release ayed H ospita TAKE 1 TAKE 1 release l TABLET BY TABLET BY TAKE 1 Cli nics MOUTH ONCE MOUTH ONCE TABLET BY A DAY A DAY MOUTH ONCE A DAY Immunizations Ordered Immunization Filled Immunization Date Status Commen ts Source Name Name COVID-19, mRNA, COVID-19, mRNA, 2020-10-07 Completed [facility] LNP-S, PF, 100 LNP-S, PF, 100 00:00:00 [facility] Clinics mcg/0.5 mL dose mcg/0.5 mL dose (Moderna) (Moderna) COVID-19, mRNA, COVID-19, mRNA, 2020-10-07 Completed [facility] LNP-S, PF, 100 LNP-S, PF, 100 00:00:00 [facility] mcg/0.5 mL dose mcg/0.5 mL dose (Moderna) (Moderna) COVID-19, mRNA, COVID-19, mRNA, 2020-09-18 Completed [facility] LNP-S, PF, 100 LNP-S, PF, 100 00:00:00 Hospit [facility] Clinics mcg/0.5 mL dose mcg/0.5 mL dose (Moderna) (Moderna) COVID-19, mRNA, COVID-19, mRNA, 2020-09-18 Completed [facility] LNP-S, PF, 100 LNP-S, PF, 100 00:00:00 Hospit [facility] Clinics mcg/0.5 mL dose mcg/0.5 mL dose (Moderna) (Moderna) Vital Signs Vital Name Observation Time Observation Value Comments Source BP Systolic 2021-06-19 00:00:00 124 mm[Hg] [facility] s Body Weight 2021-06-19 00:00:00 2550.4 [oz_av] [facility] s BP Diastolic 2021-06-19 00:00:00 94 mm[Hg] [facility] s Height 2021-06-19 00:00:00 61 [in_i] [facility] s BMI (Body Mass 2021-06-19 00:00:00 30.1 kg/m2 [facility]) [facility] s BP Diastolic 2021-02-27 00:00:00 74 mm[Hg] [facility] s Height 2021-02-27 00:00:00 61 [in_i] [facility] s BMI (Body Mass 2021-02-27 00:00:00 30.2 kg/m2 [facility]) [facility] s BP Systolic 2021-02-27 00:00:00 137 mm[Hg] [facility] s Body Weight 2021-02-27 00:00:00 2560 [oz_av] [facility] s Systolic blood 2021-02-12 19:22:00 110 mm[facility]Hg[facility] Diastolic blood 2021-02-12 19:22:00 76 mm[Hg] [facility] Heart rate 2021-02-12 19:22:00 85 /min [facility] Body temperature 2021-02-12 19:22:00 36.5 [place] [facility] Body height 2021-02-12 19:22:00 180.3 cm [facility] Body weight 2021-02-12 19:22:00 72.485 kg [facility] BMI 2021-02-12 19:22:00 22.29 kg/m2 [facility] Procedures Procedure Date / Time Performing Clinician Source Performed Repair of Rotator Cuff [place] [facility] by [facility] Total Hysterectomy [facility] Plan of Care Planned Activity Planned Date Details Comments Source Diagnostic Test 2021-06-19 rapid influenza [facility] mmunity Pending 00:00:00 virus A + B and SARS [facility] CoV + SARS CoV 2 Ag panel, [place], upper respiratory specimen [code = rapid influenza virus A + B and SARS CoV + SARS CoV 2 Ag panel, [place], upper respiratory specimen] Diagnostic Test 2021-06-19 rapid strep group A, [facility] Pending 00:00:00 throat [facility]] Instructions [facility] s Encounters Start End Encounter Admission Attending Care Care Encounter Source Date/Time Date/Time Type Type Clinicians Facility Department ID 2021-02-12 Outpatient [facility] [id number] [place] 16:04:50 [facility] 2020-08-25 Outpatient [facility] [id number] [place] 03[facility]31:35 [facility] 2021-06-19 2021-06-19 Outpatient [facility] [id number] [place] 04[facility]32:00 04:32:00 0302 [facility] 2021-06-19 2021-06-19 Outpatient [facility] [id number] 00:00:00 00:00:00 Krystle [id number] 2021-06-19 2021-06-19 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 2021-02-12 2021-02-12 Office JOCE Celaya [facility] [id number] [place] 14:15:00 16:03:31 Visit [place] [facility] [id number] He alth [place] 2 [id number] 2021-02-08 2021-02-[address] [facility] [id number] [place] 00:00:00 00:00:00 Coretta Gore [facility] [id number] Health [place] 2 [id number] 2021-01-29 2021-01-29 Outpatient [facility] [id number] [place] 05:36:00 05:36:00 1012 Commun i ty Hospita l Clinics 2021-01-05 2021-01-05 Outpatient [facility] [id number] [place] 03:45:00 03:45:00 0918 Commun i ty Hospita l Clinics 2020-11-03 2020-11-03 Outpatient [facility] [id number] [place] 03:14:00 03:14:00 0717 Commun i ty Hospita l Clinics 2020-09-29 2020-09-29 Outpatient [facility] [id number] [place] 06:31:00 06:31:00 0612 Commun i ty Hospita l Clinics 2020-08-30 2020-08-30 Outpatient [facility] [id number] [place] 04:01:00 04:01:00 0513 Commun i ty Hospita l Clinics 2020-08-06 2020-08-06 [facility] [id number] [facility] 16:15:00 16:15:00 RAMOS wong [facility] Results Test Description Test Time Test Comments Results Result Comments Source rapid strep group A, throat 2021-06-19 14:47:00 Test Item Value Reference Range Interpretation Comme nts Strep (test code = Strep) [facility] and SARS-CoV+SARS-CoV-2 (COVID-19) Ag panel - Upper respiratory specimen by Rapid [id number] 14:47:00 Test Item Value Reference Range Interpretation Comments COVID (test code = COVID) negative FLU A (test code = FLU A) negative FLU B (test code = FLU B) negative [facility]
--- NOTE | 2022-02-26 15:04 | RAD REPORT ---
EXAM DESCRIPTION: RAD - Foot Left 3 View - 02/26/2022 2:42 pm CLINICAL HISTORY: PAIN COMPARISON: <Comparisons>left foot 10/15/2018 FINDINGS: No fracture, dislocation or periosteal reaction. No acute or destructive bony process. Mi nimal joint space narrowing seen at the IP joints. Slight narrowing of the joint space the first MTP joint. No erosive or spurring component at the joints. Patient has spurring at the Achilles attachment and very minimal size plantar spur. No air or foreign body in the soft tissues. IMPRESSION: Negative left foot examination for acute finding. Foot findings are not significantly different from 2019.
--- NOTE | 2022-02-26 16:00 | EDPHYS ---
Physician Documentation [facility] Name: Natalee Marquez Age: 56 yrs Sex: Female : 1965 Arrival Date: 02/26/2022 Time: 14:12 Bed 15 Private MD: ED Physician Jaime Jamison HPI: 02/26 16:04 This 56 yrs old Female presents to ER via Ambulatory with complaints of Foot Pain. snw 16:04 The complaints affect the lateral aspect of left foot. Context: The problem was snw sustained at home, resulted from an unknown cause, the patient can partially bear weight, the patient is able to ambulate, with mild difficulty. Onset: The symptoms/episode began/occurred gradually, 4 day(s) ago, and became persistent. Treatment prior to arrival includes: elevation of the extremity. The patient has experienced a previous episode. 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 - Social history:: Smoking status: Patient denies any tobacco usage or history of. ROS: 16:07 Constitutional: Negative for fever, chills, and weight loss, Eyes: Negative for injury, snw pain, redness, and discharge, ENT: Negative for injury, pain, and discharge, Neck: Negative for injury, pain, and swelling, Cardiovascular: Negative for chest pain, palpitations, and edema, Respiratory: Negative for shortness of breath, cough, wheezing, and pleuritic chest pain, Abdomen/GI: Negative for abdominal pain, nausea, vomiting, diarrhea, and constipation, Back: Negative for injury and pain, : Negative for injury, bleeding, discharge, and swelling, Skin: Negative for injury, rash, and discoloration, Neuro: Negative for headache, weakness, numbness, tingling, and seizure, Psych: Negative for depression, anxiety, suicide ideation, homicidal ideation, and hallucinations. 16:07 MS/extremity: Positive for ecchymosis, tenderness, of the left foot. Exam: 16:08 Constitutional: This is a well developed, well nourished patient who is awake, alert, snw and in no acute distress. Head/Face: Normocephalic, atraumatic. Eyes: Pupils equal round and reactive to light, extra-ocular motions intact. Lids and lashes normal. Conjunctiva and sclera are non-icteric and not injected. Cornea within normal limits. Periorbital areas with no swelling, redness, or edema. ENT: Nares patent. No nasal discharge, no septal abnormalities noted. Tympanic membranes are normal and external auditory canals are clear. Oropharynx with no redness, swelling, or masses, exudates, or evidence of obstruction, uvula midline. Mucous membranes moist. Neck: Trachea midline, no thyromegaly or masses palpated, and no cervical lymphadenopathy. Supple, full range of motion without nuchal rigidity, or vertebral point tenderness. No Meningismus. Chest/axilla: Normal chest wall appearance and motion. Nontender with no deformity. No lesions are appreciated. Cardiovascular: Regular rate and rhythm with a normal S1 and S2. No gallops, murmurs, or rubs. Normal PMI, no JVD. No pulse deficits. Respiratory: Lungs have equal breath sounds bilaterally, clear to auscultation and percussion. No rales, rhonchi or wheezes noted. No increased work of breathing, no retractions or nasal flaring. Abdomen/GI: Soft, non-tender, with normal bowel sounds. No distension or tympany. No guarding or rebound. No evidence of tenderness throughout. Back: No spinal tenderness. No costovertebral tenderness. Full range of motion. Skin: Warm, dry with normal turgor. Normal color with no rashes, no lesions, and no evidence of cellulitis. Neuro: Awake and alert, GCS 15, oriented to person, place, time, and situation. Cranial nerves II-XII grossly intact. Motor strength 5/5 in all extremities. Sensory grossly intact. Cerebellar exam normal. Normal gait. 16:08 Musculoskeletal/extremity: Extremities: grossly normal except: noted in the left foot: ecchymosis, tenderness. Vital Signs: 14:21 BP 149 / 95; Pulse 71; Resp 16; Temp 97.7; Pulse Ox 100% ; Weight 70.31 kg; Height 5 ll1 ft. 2 in. (157.48 cm); Pain 7/10; 14:30 BP 131 / 85; Pulse 74; ko1 16:21 BP 142 / 88; Pulse 78; Resp 18; Pulse Ox 99% on R/A; ko1 14:21 Body Mass Index 28.35 (70.31 kg, 157.48 cm) ll1 MDM: 14:42 Patient medically screened. snw 16:02 Data reviewed: vital signs, nurses notes. Data interpreted: Pulse oximetry: on room air snw is 100 %. Interpretation: normal. Counseling: I had a detailed discussion with the patient and/or guardian regarding: the historical points, exam findings, and any diagnostic results supporting the discharge/admit diagnosis, the presence of at least one elevated blood pressure reading (>120/80) during this emergency department visit, radiology results, the need for outpatient follow up, to return to the emergency department if symptoms worsen or persist or if there are any questions or concerns that arise at home. Special discussion: Based on the history and exam findings, there is no indication for further emergent testing or inpatient evaluation. I discussed with the patient/guardian the need to see the orthopedic surgeon for further evaluation of the symptoms. 02/26 14:16 Order name: Foot Left 3 View XRAY; Complete Time: 15:40 snw 02/26 15:40 Order name: Walking boot; Complete Time: 16:10 snw Administered Medications: 16:10 Drug: Ketorolac 30 mg Route: IM; Site: left deltoid; ko1 Disposition: 17:58 Co-signature as Attending Physician, Jaime Jamison MD I agree with the assessment and kdr plan of care. Disposition Summary: 02/26/22 16:00 Discharge Ordered Location: Home snw Condition: Stable snw Diagnosis - Pain in left foot snw Followup: snw - With: Emergency Department - When: As needed - Reason: Worsening of condition Followup: snw - With: Private Physician - When: 2 - 3 days - Reason: Recheck today's complaints, Continuance of care, Re-evaluation by your physician Discharge Instructions: - Discharge Summary Sheet snw - Diabetes Mellitus and Foot Care snw - Musculoskeletal Pain snw - How to Use Cold Therapy, [id number] snw - Heat Therapy snw - Walking Boot, Adult snw - Foot Pain snw Forms: - Medication Reconciliation Form snw - Thank You Letter snw - Antibiotic Education snw - Prescription Opioid Use snw - Work release form ko1 Prescriptions: - Tramadol 50 mg Oral Tablet - take 1 tablet by ORAL route every 8 hours as needed; 12 tablet; Refills: 0, snw Product Selection Permitted Signatures: Dispatcher [employer] EDMS Jaime Jamison MD MD kdr Waters, Shelly, MANAGER COMMERCIAL-C MANAGER [employer]CIAL-Csnw Pema Barnard RN RN ll1 Annalee Khan RN RN ko1
--- NOTE | 2022-02-26 16:00 | ER ---
Nurse's Notes [facility] Name: Natalee Marquez Age: 56 yrs Sex: Female : 1965 Arrival Date: 02/26/2022 Time: 14:12 Bed 15 Private MD: Diagnosis: Pain in left foot Presentation: 02/26 14:21 Chief complaint: Patient states: Left ankle and foot pain since Thursday. No known ll1 trauma. Coronavirus screen: Vaccine status: Patient reports receiving the 2nd dose of the covid vaccine. Client denies travel out of the [place] in the last 14 days. At this time, the client does not indicate any symptoms associated with coronavirus-19. Ebola Screen: Patient denies travel to an Ebola-affected area in the 21 days before illness onset. Initial Sepsis Screen: Does the patient meet any 2 criteria? No. Patient's initial sepsis screen is negative. Does the patient have a suspected source of infection? Yes: Bone or joint infection. Risk Assessment: Do you want to hurt yourself or someone else? Patient reports no desire to harm self or others. Onset of symptoms was February 22, 2022. 14:21 Method Of Arrival: Ambulatory ll1 14:21 Acuity: JANICE 4 ll1 Triage Assessment: 14:22 General: Appears in no apparent distress. Behavior is cooperative, appropriate for age. ll1 Pain: Complains of pain in left leg Pain currently is 7 out of 10 on a pain scale. Musculoskeletal: Reports pain in left leg. 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 - Social history:: Smoking status: Patient denies any tobacco usage or history of. Screenin:30 Abuse screen: Denies threats or abuse. Denies injuries from another. Nutritional ko1 screening: No deficits noted. Tuberculosis screening: No symptoms or risk factors identified. Fall Risk None identified. Assessment: 14:30 General: Appears in no apparent distress. comfortable, Behavior is calm, cooperative, ko1 appropriate for age. Pain: Complains of pain in left lateral ankle. Neuro: No deficits noted. Cardiovascular: No deficits noted. Respiratory: No deficits noted. GI: No deficits noted. : No deficits noted. EENT: No deficits noted. Derm: No deficits noted. Musculoskeletal: No deficits noted. Vital Signs: 14:21 BP 149 / 95; Pulse 71; Resp 16; Temp 97.7; Pulse Ox 100% ; Weight 70.31 kg; Height 5 ll1 ft. 2 in. (157.48 cm); Pain 7/10; 14:30 BP 131 / 85; Pulse 74; ko1 16:21 BP 142 / 88; Pulse 78; Resp 18; Pulse Ox 99% on R/A; ko1 14:21 Body Mass Index 28.35 (70.31 kg, 157.48 cm) ll1 ED Course: 14:12 Patient arrived in ED. as 14:16 Krystle De La Torre FNP-C [facility]. snw 14:16 Jaime Jamison MD is Attending Physician. snw 14:21 Arm band placed on. ll1 14:22 Triage completed. ll1 14:23 Annalee Khan, BENJA is Primary Nurse. ko1 14:30 Patient has correct armband on for positive identification. Bed in low position. Call ko1 light in reach. Side rails up X 1. Pulse ox on. NIBP on. 14:30 Patient did not have IV access during this emergency room visit. Patient maintains SpO2 ko1 saturation greater than 95% on room air. 14:43 Foot Left 3 View XRAY In Process Unspecified. EDMS 16:22 Ortho shoe applied to left foot. ko1 16:23 No provider procedures requiring assistance completed. ko1 Administered Medications: 16:10 Drug: Ketorolac 30 mg Route: IM; Site: left deltoid; ko1 Medication: 14:30 VIS not applicable for this client. ko1 Outcome: 16:00 Discharge ordered by . snw 16:22 Discharged to home ambulatory. ko1 16:22 Condition: good 16:22 Discharge instructions given to patient, Instructed on discharge instructions, follow up and referral plans. medication usage, Demonstrated understanding of instructions, follow-up care, medications, Prescriptions given X 1. 16:24 Patient left the ED. ko1 Signatures: Dispatcher [employer] EDMS Krystle De La Torre FNP-C FNP-Csnw Leonarda Muro Lynsay, RN RN ll1 Annalee Khan, BENJA RN ko1
[2022-02-26] MEDS ORDERED: KETOROLAC 30 MG/ML INJ ONE (16:01)
[2022-02-26 17:14] VITALS: TEMP 97.7
[2022-02-26 17:27] VITALS: BP 142/88; O2SAT 99
== END 2022-02-26 16:24 | disposition home or self-care (01) ==
LOC: ER 14:11
DX: M79.672 Pain in left foot (principal)
CPT/HCPCS: 96372; 99284